=== PATIENT | male | born 1990 | race Caucasian/White ===

== ENCOUNTER 2018-10-17 19:52 | Emergency (ER) | payer OTHER ==
[2018-10-17 20:19] VITALS: BP 141/90
[2018-10-17] MEDS ORDERED: Ibuprofen TAB* 600 MG PO ONE (20:25)
[2018-10-17] MEDS ORDERED: Ibuprofen TAB* 600 MG ONE (20:26)
--- NOTE | 2018-10-17 23:27 | UC ---
Hand/Wrist HPI - HPI Summary HPI Summary: 28 y/o male presents to the urgent care c/o left hand pain and swelling s/p punching a timber box while doing cross exercise tonight [id number]. Pt reports Hx of scaphoid fracture s/p Internal fixation 11 years ago. Pt states pain is 8/10 w/ movement and associated w/ mild swelling and w/ difficulty closing his hand, but he can move all fingers. Pt denies numbness or tingling sensation over the left hand, SOB, chest pain, abdominal pain, N/V/d. - History Of Current Complaint Chief Complaint: UCUpperExtremity Stated Complaint: HAND INJURY Time Seen by Provider: 10/17/18 20:41 Hx Obtained From: Patient Onset/Duration: Sudden Onset, Lasting Hours - 2 hrs, Still Present Severity Initially: Severe Severity Currently: Moderate Pain Intensity: 8 Pain Scale Used: 0-10 Numeric Character Of Pain: Sharp Aggravating Factor(s): Movement, Lifting, Flexion Alleviating Factor(s): Rest, Ice Associated Signs And Symptoms: Positive: Swelling, Bruising. Negative: Numbness /Tingling Related History: Dominant Hand Right - Risk Factors Compartment Syndrome Risk Factors: Pain - Allergies/Home Medications Allergies/Adverse Reactions: Allergies Allergy/AdvReac Type Severity Reaction Status Date / Time No Known Allergies Allergy Verified 10/17/18 20:19 PMH/Surg Hx/FS Hx/Imm Hx Previously Healthy: Yes - Pt denies PMHX - Surgical History Surgical History: Yes Surgery Procedure, Year, and Place: L wrist surgery iwth pin placement 2008 - Family History Known Family History: Positive: None - Pt denies FMHX - Social History Occupation: Employed Full-time Lives: With Family Alcohol Use: Weekly Substance Use Type: None Smoking Status (MU): Never Smoked Tobacco Review of Systems All Other Systems Reviewed And Are Negative: Yes Constitutional: Positive: Negative Skin: Positive: Bruising - and swelling over the dorsal side of left hand s/p injury Eyes: Positive: Negative ENT: Positive: Negative Respiratory: Positive: Negative Cardiovascular: Positive: Negative Gastrointestinal: Positive: Negative Genitourinary: Positive: Negative Motor: Positive: Negative Neurovascular: Positive: Negative Musculoskeletal: Positive: Decreased ROM - left hand, Other: - left hand pain s/ p left hand injury Neurological: Positive: Negative Psychological: Positive: Negative Is Patient Immunocompromised?: No Physical Exam - Summary Physical Exam Summary: Vital Signs Reviewed: Yes General: Well developed well nourished male sitting in the examining table w/o any apparent distress Eyes: Positive: Conjunctiva Clear - PERRLA, EOMI ENT: Positive: Normal ENT inspection, Hearing grossly normal, Pharynx normal, TMs normal Neck: Positive: Supple, Nontender, No Lymphadenopathy Respiratory: Positive: Chest non-tender, Lungs clear, Normal breath sounds, No respiratory distress Cardiovascular: Positive: RRR, No Murmur, Pulses Normal, Brisk Capillary Refill Abdomen Description: Positive: Nontender, No Organomegaly, Soft. Negative: CVA Tenderness (R), CVA Tenderness (L) Bowel Sounds: Positive: Present Musculoskeletal: Positive: Strength Intact, No Edema, LF Hand/Fingers: the L hand is without obvious asymmetry or deformity when compared to the R hand. moderate swelling around dorsal side of #3rd and 4th metacarpal and Metatarsals, no erythema, atrophy, or obvious deformity. No surface trauma, open wounds,bony deformity. decrease ROM of the 3rd and 4th phalax. decrease ROM of the hand due to pain. No focal fullness, throbbing pain, swelling of finger tip. Pulses and capillary refill WNL, positive reflexes and sensation intact Neurological Exam: Normal Psychological Exam: Normal Skin Exam: Normal Triage Information Reviewed: Yes Vital Signs: Initial Vital Signs Temp 99.0 F 10/17/18 20:15 Pulse 83 10/17/18 20:15 Resp 18 10/17/18 20:15 BP 141/90 10/17/18 20:15 Pulse Ox 100 10/17/18 20:15 Hand/Wrist Course/Dx - Course Course Of Treatment: 28 y/o male presents to the urgent care c/o left hand pain and swelling s/p punching a timber box while doing cross exercise tonight [id number]. Pt reports Hx of scaphoid fracture s/p Internal fixation 11 years ago. Pt states pain is 8/10 w/ movement and associated w/ mild swelling and w/ difficulty closing his hand, but he can move all fingers. Pt denies numbness or tingling sensation over the left hand, SOB, chest pain, abdominal pain, N/V/d.Hx obtained. LF hand X-ray ordered. Impression: positive oblique fracture of the third and fourth metacarpals and old scaphoid fracture s/p internal fixation. Final radiology report still pending. Pt advised he will be notified of final report tomorrow. I discussed Pt's symptoms and X-ray w/ DR Diaz and re recommended immobilization of left hand w/ an ulnar gutter splint. Pts left hand immobilized with ulnar gutter splint by me. Pt tolerated well splinting and left hand neurovascular intact after splinting. Pt given a sling to keep hand elevated and for comfort. Advised RICE: Rest, Ice, elevation, Ibuprofen PO. the splint was in good alignment and the pt had good sensation and capillary refill at the time of discharge.Pt advised to f/u w/ Orthopedic Dr Austin as soon as possible for further management of his hand fracture.Pt's BP is elevated today advised to decrease salt in diet, monitor BP and f/u with PCP for further management. D/C instructions explained. Pt understood and agreed w/ plan of care. - Differential Dx/Diagnosis Differential Diagnosis/HQI/PQRI: Contusion, Dislocation, Fracture, Sprain, Strain, Tendonitis Provider Diagnosis: Fracture of third metacarpal bone of left hand, Fracture of fourth metacarpal bone of left hand, Injury of left hand, Elevated BP without diagnosis of hypertension - Physician Notifications Discussed Patient Care With: Prosper Diaz - Dr Diaz agreed w/ Pt's plan of care. Discharge - Sign-Out/Discharge Documenting (check all that apply): Patient Departure - d/C home All imaging exams completed and their final reports reviewed: No - Discharge Plan Condition: Stable Disposition: HOME Prescriptions: Ibuprofen TAB* [Motrin TAB* 800 MG] 800 mg PO Q6H PRN #30 tab PRN Reason: Pain Patient Education Materials: Hand Fracture (ED) Referrals: [facility] [place] [facility] [Outside] - 1 Day Dhiraj Austin MD [Medical Doctor] - 1 Day Additional Instructions: 1-Please take Ibuprofen PO q6-8hrs prn after meals as directed to alleviate pain and swelling. 2-Please apply ice, keep your hand immobilized with the splint and sling . Avoid heavy lifting or strenuous exercise 3- Please f/u with Orthopedic Dr Austin in 1-2 days for further evaluation and treatment in your hand fracture. 4- Your BP is elevated today. please decrease salt in your diet, monitor BP and if it continues to be elevated please f/u with your PCP for further management. - Billing Disposition and Condition Condition: STABLE Disposition: Home
--- NOTE | 2018-10-18 10:11 | UC ---
- EKG/XRAY/CT XRAY: hand - oblique fracture of third and fourth metacarpal. 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 Course/Dx - Diagnoses Provider Diagnoses: Fracture of third metacarpal bone of left hand, Fracture of fourth metacarpal bone of left hand, Injury of left hand, Elevated BP without diagnosis of hypertension Discharge - Sign-Out/Discharge Documenting (check all that apply): Post-Discharge Follow Up All imaging exams completed and their final reports reviewed: Yes - Discharge Plan Condition: Stable Disposition: HOME Prescriptions: Ibuprofen TAB* [Motrin TAB* 800 MG] 800 mg PO Q6H PRN #30 tab PRN Reason: Pain Patient Education Materials: Hand Fracture (ED) Referrals: [facility] [place] [facility] [Outside] - 1 Day Dhiraj Austin MD [Medical Doctor] - 1 Day Additional Instructions: 1-Please take Ibuprofen PO q6-8hrs prn after meals as directed to alleviate pain and swelling. 2-Please apply ice, keep your hand immobilized with the splint and sling . Avoid heavy lifting or strenuous exercise 3- Please f/u with Orthopedic Dr Austin in 1-2 days for further evaluation and treatment in your hand fracture. 4- Your BP is elevated today. please decrease salt in your diet, monitor BP and if it continues to be elevated please f/u with your PCP for further management. - Billing Disposition and Condition Condition: STABLE Disposition: Home
== END 2018-10-17 22:05 | disposition home or self-care (01) ==
LOC: UCEAST 19:52
DX: S62.303A Unspecified fracture of third metacarpal bone, left hand, initial encounter for closed fracture (principal); S62.305A Unspecified fracture of fourth metacarpal bone, left hand, initial encounter for closed fracture; S69.92XA Unspecified injury of left wrist, hand and finger(s), initial encounter; R03.0 Elevated blood-pressure reading, without diagnosis of hypertension; W22.8XXA Striking against or struck by other objects, initial encounter; Y93.B9 Activity, other involving muscle strengthening exercises; Y92.9 Unspecified place or not applicable
CPT/HCPCS: 26600; 99203; A9270-GY; G0463

== ENCOUNTER 2018-11-10 12:55 | Day surgery (SDC) | payer OTHER ==
[~2018-11-10 12:55] MED LIST: Acetaminophen TAB* 325 MG PO ONE; Buffered Lidocaine 1% SYRIN* 1 ML/SYRINGE INTRADERM ONE; Famotidine IV* 10 MG/ML 2 ML (20 mg) IV ONE; Gabapentin CAP(*) 300 MG PO ONE; Lactated Ringers 1000 ML Bag* 1,000 ML IV SCH
[2018-11-10] MEDS ORDERED: ceFAZolin 2 GM PREMIX in ORs 2 GM/50 ML BAG IVPB ONE (13:22)
[2018-11-10] MEDS ORDERED: Gabapentin CAP(*) 300 MG ONE (13:23)
[2018-11-10] MEDS ORDERED: Famotidine IV* 10 MG/ML 2 ML (20 mg) ONE (13:24)
[2018-11-10] MEDS ORDERED: Acetaminophen TAB* 325 MG ONE (13:24)
[2018-11-10] MEDS ORDERED: Metoclopramide IV* 5 MG/ML 2 ML VIAL ONE (13:50)
[2018-11-10] MEDS ORDERED: Metoclopramide IV* 5 MG/ML 2 ML VIAL IV SLOW PU ONE (13:50)
[2018-11-10] MEDS ORDERED: Bupivacaine 0.25% SDV* 30 ML ONE (14:33)
[2018-11-10] MEDS ORDERED: Midazolam* 1 MG/ML 2 ML VIAL (2 MG) ONE (14:37)
[2018-11-10] MEDS ORDERED: fentaNYL* 50 MCG/ML 2 ML VIAL (100 MCG VIAL) ONE ×3 (14:37→17:50)
[2018-11-10] MEDS ORDERED: Lidocaine 2% PF * 5 ML VIAL ONE (15:14)
[2018-11-10] MEDS ORDERED: Propofol* 10 MG/ML 20 ML BTL ONE (15:14)
[2018-11-10] MEDS ORDERED: Dexamethasone IV* 4 MG/ML 1 ML (4 MG) ONE (15:30)
[2018-11-10] MEDS ORDERED: Ondansetron INJ* 2 MG/ML VIAL IV PRN (16:58)
[2018-11-10] MEDS ORDERED: fentaNYL* 50 MCG/ML 2 ML VIAL (100 MCG VIAL) IV PRN (16:58)
[2018-11-10] MEDS ORDERED: Naloxone* 0.4 MG/ML 1 ML VIAL IV PRN (16:58)
[2018-11-10] MEDS ORDERED: Ketorolac INJ* 30 MG/ML 1 ML VIAL ONE (17:50)
[2018-11-10] MEDS ORDERED: HYDROcodone/ACETAMIN 5-325 MG* 1 TAB ONE (17:59)
[2018-11-10 18:54] VITALS: BP 141/82
--- NOTE | 2018-11-10 23:52 | OP ---
DATE OF OPERATION: 11/10/18 - [facility] DATE OF : 89 SURGEON: Krish Oshea MD SCREWHEAD STONER AND POLISHER: YUE Martinez. An clinical lab assistant was needed for the entirety of the procedure to aid in positioning of the arm and retraction. ANESTHESIOLOGIST: Dr. Bates. ANESTHESIA: General. PRE-OP DIAGNOSES: 1. Left displaced third and fourth metacarpal fractures. 2. 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 POST-OP DIAGNOSES: 1. Left displaced third and fourth metacarpal fractures. 2. 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 OPERATIVE PROCEDURE: 1. Open reduction internal fixation, left third metacarpal shaft fracture. 2. Open reduction internal fixation, left fourth metacarpal shaft fracture. 3. Removal of left scaphoid deep buried screw. ESTIMATED BLOOD LOSS: 5 mL. COMPLICATIONS: None. FINDINGS: See above and below. INDICATIONS: We have been watching Krish's fractures and they have slowly shortened and displaced. Ultimately, we decided to proceed with surgical repair. He asked me if I could take the screw out as well. He understands there is a risk of stiffness, risk of neurovascular injury, risk of tendon adhesions. He understands the scaphoid will have to be addressed at some point in the future. He understands these are other surgical risks. DESCRIPTION OF PROCEDURE: Krish was seen in the preoperative holding area. The correct site, side, and procedure were identified. We came back to the operating room. The arm was prepped and draped in the usual fashion and a time- out was performed. The arm was exsanguinated with the Esmarch and the tourniquet was inflated to 250 mmHg. I made a longitudinal incision between the third and the fourth metacarpals, dissection was carried down. The interval between the EDC tendons was utilized. There was a very nice interval and no release of any junctura was required. The tendons were retracted out of the way and then I did subperiosteal dissection to expose the third and then the fourth metacarpal shaft fractures preserving the soft tissue envelope between the 2 bones. There were some soft calluses that had formed. This was all curetted and debrided out with the Stoddard blade, the curette, [place] elevator and rongeur. Once I had mobilized the third fracture, I went ahead and reduced it. There actually was a piece of dorsal comminution over the fracture line that was nondisplaced dorsally. Everything was clamped into place. I then placed multiple 1.5 mm countersunk lag screws and this held the bone in very nice alignment. I confirmed the alignment on mini C-arm fluoroscopy. I then came over to the fourth metacarpal, and in like manner, I debrided all the soft callus and freed up the fracture. Again, there was a piece of nondisplaced dorsal crack near the base. Everything was clamped into place and then secured with multiple 1.5 mm countersunk lag screws. Again, the alignment was checked on mini C-arm fluoroscopy. After everything was looking good, I went ahead and placed a 2.0-mm plate over the dorsum of the third metacarpal and secured it in the oblong hole with a 2.0 mm cortical screw and I then placed a separate plate on the fourth metacarpal and again secured it in the oblong hole with a screw. The plate alignment and position was confirmed on mini C-arm fluoroscopy and then I placed cortical screws distally in both plates and cortical screws proximally and variable angle locking screws proximally in both plates. This provided excellent fixation and both fractures were very rigid at this point. Once the third and fourth metacarpal shaft fractures were fixed, we irrigated out the wound. The periosteal layer was closed over both plates with 4-0 Prolene suture, this covered the entirety of both plates. The skin was then closed. The wound was then irrigated out and skin was closed with 4-0 nylon suture. I then came radially, and just over the scaphotrapezial joint, I made a 1.5 cm incision, dissection was bluntly carried down and I exposed the screw. I used the mini C-arm fluoroscopy to localize the screws as I performed the blunt dissection down to the bone. Once I had freed up the soft tissue around the end of the screw, I was able to put a rongeur around the screw head and I just pulled it right out. After I had removed that deep screw, we irrigated out the wound and the skin was closed with 4-0 nylon suture. Marcaine was infiltrated all around the operative areas. A short-arm splint all the way up to the fingertips was applied in a protected position. Tourniquet was deflated and the hand pinked up immediately. He was taken to the recovery room in stable condition. Tourniquet was used at 250 mmHg throughout the case. [id number]/[facility] #: [id number] DIAMOND
== END 2018-11-10 18:56 | disposition home or self-care (01) ==
LOC: OREAST 12:55
PROVIDERS: ATTEND Orthopaedic Surgery Hand Surgery
DX: S62.323A Displaced fracture of shaft of third metacarpal bone, left hand, initial encounter for closed fracture (principal); S62.325A Displaced fracture of shaft of fourth metacarpal bone, left hand, initial encounter for closed fracture; X58.XXXA Exposure to other specified factors, initial encounter; Y92.9 Unspecified place or not applicable; T84.298D Other mechanical complication of internal fixation device of other bones, subsequent encounter
CPT/HCPCS: 76000; 88300; A9270-GY; C1713; C1776; J0690; J1100; J1885; J2250; J2704; J2765; J3010; J3490